=== PATIENT | male | born 1955 | race Caucasian/White ===

== ENCOUNTER → 2020-05-21 | Outpatient (CLI) | payer BC, MEDICARE ==
--- NOTE | 2020-05-22 04:23 | MR ---
EXAMINATION TYPE: MR cervical spine wo con DATE OF EXAM: 05/21/2020 COMPARISON: 03/04/2014 HISTORY: Chronic neck pain, numbness/tingling rt arm/hand Multiplanar multiecho imaging of the cervical spine was performed with no contrast. FINDINGS: Vertebra have normal alignment. There is narrowing of the C5-6 and C6-7 disc spaces with some spurrin g of the endplates. Cervical spinal cord has normal signal pattern. There is no edema. There is devel opmentally adequate spinal canal. There is a mild narrowing of the spinal canal to 8.5 mm at C4-5. Ce rvical cord shows no edema. The brainstem is intact. There is no evidence of compression fracture. Th ere is no cervical paraspinal mass. IMPRESSION: Spondylotic changes in the lower cervical spine at C5-6 and C6-7 have progressed slightly compared to old exam. There is new mild relative narrowing of the spinal canal at C4-5 due to posterior element spurring compared to old exam. No significant spinal stenosis.
== END | disposition home or self-care (01) ==
LOC: RADMRIMAIN 12:56
PROVIDERS: ATTEND Family Medicine
DX: M43.02 Spondylolysis, cervical region (principal); M48.02 Spinal stenosis, cervical region; G89.29 Other chronic pain
CPT/HCPCS: 72141